=== PATIENT | male | born 1985 | race Caucasian/White ===

== ENCOUNTER 2020-07-17 12:58 | Emergency (ER) | payer MEDICAID ==
[2020-07-17] MEDS: Diphtheria,Pertussis(Acell),Tetanus Vaccine 0.5 ML SDV IM ONE (13:00)
--- NOTE | 2020-07-17 13:18 | EDM.PDOC ---
ED HPI GENERAL MEDICAL PROBLEM - General Chief Complaint: Laceration Stated Complaint: LACERATION Time Seen by Provider: 07/17/20 12:58 Source of Information: Reports: Patient History Limitations: Reports: No Limitations - History of Present Illness INITIAL COMMENTS - FREE TEXT/NARRATIVE: 34 year old male presents to ED with a laceration to left 2nd finger using a saw at home. Unknown tetanus status. Bleeding controlled. Onset: Today Quality: Reports: Ache Improves with: Reports: None Worsens with: Reports: None Associated Symptoms: Reports: No Other Symptoms ED ROS GENERAL - Review of Systems Review Of Systems: See Below Constitutional: Reports: No Symptoms HEENT: Reports: No Symptoms Respiratory: Reports: No Symptoms Cardiovascular: Reports: No Symptoms Endocrine: Reports: No Symptoms GI/Abdominal: Reports: No Symptoms : Reports: No Symptoms Musculoskeletal: Reports: Hand Pain Skin: Reports: Wound Neurological: Reports: No Symptoms Psychiatric: Reports: No Symptoms Hematologic/Lymphatic: Reports: No Symptoms Immunologic: Reports: No Symptoms ED EXAM, SKIN/RASH Exam: See Below Exam Limited By: No Limitations General Appearance: Alert, No Apparent Distress Ears: Normal External Exam Nose: Normal Inspection Throat/Mouth: Normal Voice Head: Atraumatic Neck: Non-Tender, Full Range of Motion Respiratory/Chest: No Respiratory Distress Cardiovascular: Regular Rate, Rhythm Extremities: Normal Inspection, Normal Capillary Refill Neurological: Alert, Oriented, Normal Cognition, Normal Gait, No Motor/Sensory Deficits Psychiatric: Normal Affect, Normal Mood Skin: Warm, Dry, No Rash, Wound/Incision Location, Skin: Upper Extremity, Left Lymphatic: No Adenopathy ED SKIN PROCEDURES - Laceration/Wound Repair Left Digit - 2nd (Index) Appearance: Superficial Distal NVT: Neuro & Vascular Intact, No Tendon Injury Skin Prep: Providone-Iodine (Betadine), Saline Tetanus Status Addressed: Yes Progress/Comments: 1 cm laceration to left 2nd finger, wound cleansed, no stitches. Bleeding controlled, bulky dressing applied with telfa and kerlix. Patient instructed to leave dressing in place for 24hour. Course - Orders/Labs/Meds Orders: Active Orders 24 hr Category Date Time Status Vaccines to be Administered [RC] PER UNIT ROUTINE Care 07/17/20 13:06 Ordered Meds: Medications Discontinued Medications Generic Name Dose Route Start Last Admin Trade Name Freq PRN Reason Stop Dose Admin Diphtheria/Tetanus/Acell Pertussis 0.5 ml 07/17/20 13:06 Diphtheria,Pertussis(Acell),Tetanus Vaccine 0.5 Ml Sdv IM 07/17/20 13:07 .ONCE ONE Departure - Departure Time of Disposition: 13:19 Disposition: Home, Self-Care 01 Condition: Good Clinical Impression: Laceration of index finger of left hand without complication Qualifiers: Encounter type: initial encounter Qualified Code(s): S61.211A - Laceration without foreign body of left index finger without damage to nail, initial encounter - Discharge Information *PRESCRIPTION DRUG MONITORING PROGRAM REVIEWED*: Not Applicable *COPY OF PRESCRIPTION DRUG MONITORING REPORT IN PATIENT BRIAN: Not Applicable Instructions: Laceration Care, Adult, [id number] Additional Instructions: Watch for signs of infection. Remove the dressing in 24 hours, you may wash with soap. Keep area clean and dry. Return to ED for any increased or new concerning symptoms. - My Orders Last 24 Hours: My Active Orders 07/17/20 13:06 Vaccines to be Administered [RC] PER UNIT ROUTINE - Assessment/Plan Last 24 Hours: My Active Orders 07/17/20 13:06 Vaccines to be Administered [RC] PER UNIT ROUTINE
== END 2020-07-17 13:20 | disposition home or self-care (01) ==
LOC: LB.ED 12:58
DX: S61.211A Laceration without foreign body of left index finger without damage to nail, initial encounter (principal); Z23 Encounter for immunization; W27.0XXA Contact with workbench tool, initial encounter; Y92.009 Unspecified place in unspecified non-institutional (private) residence as the place of occurrence of the external cause
CPT/HCPCS: 90471; 90715; 99282; 99283

== ENCOUNTER 2021-11-12 19:31 | Observation (INO) | payer MEDICAID ==
[2021-11-12] MEDS: Morphine 10 MG/ML SDV IVPUSH ONE ×2 (20:17→20:20)
[2021-11-12] MEDS ORDERED: Silver Sulfadiazine 1% Crm 50 GM Tube TOP ONE (20:52)
[2021-11-12] MEDS ORDERED: Ketamine 200 MG/20 ML MDV IVPUSH ONE (21:10)
[2021-11-12] MEDS ORDERED: LORazepam 2 MG/ML SDV IVPUSH ONE (21:11)
[2021-11-12] MEDS ORDERED: ceFAZolin 1 GM in Premix Bag 1 BAG IV ONE (21:24)
[2021-11-12] MEDS ORDERED: Lactated Ringers 1,000 ML IV ONE (21:24)
[2021-11-12] MEDS: Acetaminophen/HYDROcodone 325-5 MG Tab PO PRN (23:40)
[2021-11-13] MEDS ORDERED: Melatonin 10 MG Cap PO ONE (02:01)
[2021-11-13] MEDS: Ibuprofen 600 MG Tab PO PRN ×3 (04:11→22:30)
[2021-11-13] MEDS: Acetaminophen/HYDROcodone 325-5 MG Tab PO PRN ×5 (07:18→22:30)
[2021-11-13] MEDS ORDERED: Melatonin 10 MG Cap PO SCH (20:00)
[2021-11-13] MEDS ORDERED: Silver Sulfadiazine 1% Crm 50 GM Tube TOP ONE (23:21)
[2021-11-14] MEDS: Acetaminophen/HYDROcodone 325-5 MG Tab PO PRN ×2 (03:29→10:24)
== END 2021-11-14 14:35 | disposition home or self-care (01) ==
LOC: LB.ED 19:31 → INTOOBSV 21:10 → LB.MS 21:10
PROVIDERS: ADMIT Surgery; ATTEND Surgery
DX: T24.201A Burn of second degree of unspecified site of right lower limb, except ankle and foot, initial encounter (principal); E66.01 Morbid (severe) obesity due to excess calories; E11.9 Type 2 diabetes mellitus without complications; F32.A Depression, unspecified; I10 Essential (primary) hypertension; Z88.8 Allergy status to other drugs, medicaments and biological substances; G47.30 Sleep apnea, unspecified; Z87.891 Personal history of nicotine dependence; Z20.822 Contact with and (suspected) exposure to COVID-19
CPT/HCPCS: 16020; 96365; 96375; 99285-25; A9270-GY; G0378; J0690; J2060; J2270; J7120; U0002

== ENCOUNTER 2021-12-24 18:15 | Emergency (ER) | payer MEDICAID | END 2021-12-24 18:55 | disposition home or self-care (01) | LOC: LB.ED 18:15 | DX: S69.92XA Unspecified injury of left wrist, hand and finger(s), initial encounter (principal); I10 Essential (primary) hypertension; E11.9 Type 2 diabetes mellitus without complications; Z88.8 Allergy status to other drugs, medicaments and biological substances; W22.09XA Striking against other stationary object, initial encounter | CPT/HCPCS: 73140-F1; 99283 ==

== ENCOUNTER 2022-01-13 18:52 | Emergency (ER) | payer MEDICAID ==
[2022-01-13 19:33] VITALS: BP 162/95; PULSE 93
== END 2022-01-13 19:20 | disposition home or self-care (01) ==
LOC: LB.ED 18:52
DX: T24.201A Burn of second degree of unspecified site of right lower limb, except ankle and foot, initial encounter (principal); Z48.00 Encounter for change or removal of nonsurgical wound dressing; I10 Essential (primary) hypertension; E11.9 Type 2 diabetes mellitus without complications; Z88.8 Allergy status to other drugs, medicaments and biological substances
CPT/HCPCS: 99282

== ENCOUNTER 2022-08-06 13:51 | Emergency (ER) | payer MEDICAID, OTHER ==
[2022-08-06] MEDS ORDERED: Sodium Chloride 0.9% 10 ML Syringe FLUSH PRN (14:19)
[2022-08-06] MEDS ORDERED: Sodium Chloride 0.9% 1,000 ML IV ONE (14:19)
[2022-08-06 14:37] LABS: BASOPHILS ABSOLUTE AUTO 0.03 K/uL (0.02-0.10); BASOPHILS PERCENT AUTO 0.5 % (0.0-0.5); EOSINOPHILS ABSOLUTE AUTO 0.13 K/uL (0.04-0.40); HEMATOCRIT 41.9 % (40.0-54.0); HEMOGLOBIN 14.4 g/dL (13.0-18.0); LYMPHOCYTES ABSOLUTE AUTO 1.83 K/uL (1.50-4.00); LYMPHOCYTES PERCENT AUTO 28.3 % (20.0-40.0); MEAN CORPUSCULAR HEMOGLOBIN 29.4 pg (27.0-32.0); MEAN CORPUSCULAR HGB CONC 34.4 g/dL (31.0-35.0); MEAN CORPUSCULAR VOLUME 86 fL (76-96); MEAN PLATELET VOLUME 9.9 fL (6.0-10.0); MONOCYTES ABSOLUTE AUTO 0.49 K/uL (0.20-0.80); MONOCYTES PERCENT AUTO 7.6 % (3.0-10.0); NEUTROPHILS ABSOLUTE AUTO 3.99 K/uL (2.00-7.50); NEUTROPHILS PERCENT AUTO 61.6 % (45.0-70.0); PLATELET COUNT,PLT 317 K/uL (150-400); RED BLOOD CELL COUNT 4.89 M/uL (4.50-6.50); RED CELL DISTRIBUTION WIDTH 13.3 % (11.0-16.0); WHITE BLOOD CELL COUNT,WBC 6.5 K/uL (4.0-11.0)
[2022-08-06 14:57] LABS: A/G RATIO 1.1 (0.8-2.0); ALANINE AMINOTRANSFERASE,ALT 58 U/L (12-78); ALKALINE PHOSPHATASE 91 U/L (46-116); ANION GAP 14.6 mmol/L (5.0-15.0); ASPARTATE AMNIOTRANSFERASE,AST 27 U/L (15-37); BILIRUBIN TOTAL 0.8 mg/dL (0.0-1.0); BLOOD UREA NITROGEN,BUN 28 mg/dL (8-26); BUN/CREATININE RATIO 17.6 (6-25); CALCIUM 10.1 mg/dL (8.5-10.1); CARBON DIOXIDE,CO2 24.1 mmol/L (21.0-32.0); CHLORIDE,CL 103 mmol/L (98-107); CREATININE 1.59 mg/dL (0.70-1.30); ESTIMATED GFR 57 mL/min (>60); GLUCOSE RANDOM 113 mg/dL (74-100); MAGNESIUM 1.9 mg/dL (1.8-2.4); POTASSIUM,K 3.7 mmol/L (3.5-5.1); PROTEIN TOTAL,TP 7.8 g/dL (6.4-8.2); SODIUM,NA 138 mmol/L (136-145)
== END 2022-08-06 16:08 | disposition home or self-care (01) ==
LOC: LB.ED 13:51
DX: E86.0 Dehydration (principal); I10 Essential (primary) hypertension; E11.9 Type 2 diabetes mellitus without complications; Z88.8 Allergy status to other drugs, medicaments and biological substances
CPT/HCPCS: 36415; 80053; 82947; 83735; 85025; 93005; 93010; 99283; 99284

== ENCOUNTER 2022-10-19 20:15 | Emergency (ER) | payer OTHER ==
[2022-10-19] MEDS ORDERED: Bupivacaine 0.5% 30 ML SDV INFILT ONE (20:30)
[2022-10-19] MEDS ORDERED: Bacitracin Oint 1 GM U/D Packet TOP ONE (20:30)
== END 2022-10-19 21:35 | disposition home or self-care (01) ==
LOC: MERGE 20:15 → LB.ED 20:15
DX: S61.412A Laceration without foreign body of left hand, initial encounter (principal); E11.9 Type 2 diabetes mellitus without complications; I10 Essential (primary) hypertension; Z79.899 Other long term (current) drug therapy; Z88.8 Allergy status to other drugs, medicaments and biological substances; W45.8XXA Other foreign body or object entering through skin, initial encounter
CPT/HCPCS: 12002; 99282; J3490

== ENCOUNTER 2023-03-30 13:08 | Emergency (ER) | payer MEDICAID, OTHER | END 2023-03-30 14:01 | disposition home or self-care (01) | LOC: LB.ED 13:08 | DX: T81.30XA Disruption of wound, unspecified, initial encounter (principal); E11.9 Type 2 diabetes mellitus without complications; I10 Essential (primary) hypertension; Z79.899 Other long term (current) drug therapy; Z88.8 Allergy status to other drugs, medicaments and biological substances | CPT/HCPCS: 99283 ==

== ENCOUNTER 2023-10-08 20:01 | Emergency (ER) | payer MEDICAID | END 2023-10-08 22:30 | disposition home or self-care (01) | LOC: LB.ED 20:01 | DX: S90.121A Contusion of right lesser toe(s) without damage to nail, initial encounter (principal); I10 Essential (primary) hypertension; E10.9 Type 1 diabetes mellitus without complications; Z79.899 Other long term (current) drug therapy; Z88.8 Allergy status to other drugs, medicaments and biological substances; W21.4XXA Striking against diving board, initial encounter; Y93.11 Activity, swimming | CPT/HCPCS: 73660-T7; 99283 ==

== ENCOUNTER 2024-08-20 16:12 | Emergency (ER) | payer BC ==
[2024-08-20] MEDS: Tetracaine HCl/PF 0.5% 4 ML Bottle EYELF ONE (16:22)
== END 2024-08-20 16:40 | disposition home or self-care (01) ==
LOC: LB.ED 16:12
DX: H57.89 Other specified disorders of eye and adnexa (principal); I10 Essential (primary) hypertension; E10.9 Type 1 diabetes mellitus without complications; Z88.8 Allergy status to other drugs, medicaments and biological substances; Z79.899 Other long term (current) drug therapy
CPT/HCPCS: 99283